=== PATIENT | male | born 1965 | race Caucasian/White ===

== ENCOUNTER 2017-03-23 17:18 | Emergency (ER) | payer BC ==
[~2017-03-23] VITALS: Ht 185.4 cm; Wt 128.6 kg
[2017-03-23 17:18] VITALS: TEMP 36.4; Ht 185.4 cm; Wt 128.6 kg
[2017-03-23] MEDS ORDERED: LIDOCAINE/EPINEPHRINE 1% 20 ML VIAL INFIL STA (17:33)
[2017-03-23] MEDS ORDERED: SODIUM CHLORIDE 0.9% 1000ML 1,000 ML IV STA (17:33)
[2017-03-23 17:57] VITALS: O2SAT 97
[2017-03-23] MEDS ORDERED: ESCI1TAB10 PO (17:58)
[2017-03-23] MEDS ORDERED: LSN/10125 PO (17:58)
[2017-03-23] MEDS ORDERED: BUPRTAB PO (17:58)
--- NOTE | 2017-03-23 18:08 | EMERGENCY ROOM VISIT NOTE ---
History Report prepared by Henrique: Kyara Gan Under the Supervision of: Dr. Mata Goss M.D. First contact with patient: 17:27 Chief Complaint: SYNCOPE Stated Complaint: SYNCOPE, FALL, HEAD LACERATION History of Present Illness The patient is a 51 year old male who presents to the Emergency Room with complaints of an episode of syncope just prior to arrival. The patient states he was drinking a cup of coffee when his friend told him a joke and he laughed. He reports that he started to choke on the coffee. The patient states that the next thing he remembers is waking up on the floor and his head was feeling warm from blood. The patient states that he has a massive headache and this has never happened before. The patient currently rates his pain as a 7/10 in severity. Source of History: patient Onset: prior to arrival Position: other (global) Symptom Intensity: 7/10 Quality: other (global) Timing: other (episode) Associated Symptoms: + headache Review of Systems See HPI for pertinent positives & negatives. A total of 10 systems reviewed and were otherwise negative. Past Medical & Surgical Medical Problems: (1) No Known Active Medical Problems Family History No pertinent family history Social History Smoking Status: Current Every Day Smoker Marital Status: Housing Status: lives with significant other Occupation Status: employed Current/Historical Medications Scheduled Bupropion Hcl (Wellbutrin Xl), 150 MG PO QAM Escitalopram Oxalate (Lexapro), 20 MG PO DAILY Hctz/Lisinopril (Lisinopril/Hctz 10/12.5 Mg), 1 TAB PO DAILY Allergies Coded Allergies: Aspirin (Unverified Allergy, Unknown, "CHILDHOOD ALLERGY", 03/23/17) Physical Exam Vital Signs Date Time Temp Pulse Resp B/P (MAP) Pulse Ox O2 Delivery O2 Flow Rate FiO2 03/23/17 20:10 72 22 136/84 98 03/23/17 19:15 66 22 141/94 95 Room Air 03/23/17 17:57 72 137/87 76 151/93 86 143/96 03/23/17 17:57 97 Room Air 03/23/17 17:35 69 03/23/17 17:18 36.4 75 20 137/87 97 Room Air Physical Exam GENERAL: Patient is a healthy-appearing well-nourished HEAD: Normocephalic, 2.6 cm laceration to back of head. EYES: Ocular movements intact pupils equal and react to light OROPHARYNX mucous membranes are moist no exudates present no erythema or edema present NECK: Supple no nuchal rigidity CHEST: Good equal expansion LUNGS: Clear and equal to auscultation CARDIAC: Normal S1 and S2 ABDOMEN: Soft nontender no guarding BACK: No CVA tenderness EXTREMITIES: No pain upon palpation normal muscle strength in all groups no clubbing cyanosis or edema NEURO: Patient is following commands and answering questions appropriately. Alert and oriented x3 Cranial Nerves 2-12 grossly intact Medical Decision & Procedures ER Provider Diagnostic Interpretation: Radiology results as stated below per my review and radiologist interpretation: CT SCAN OF THE BRAIN WITHOUT IV CONTRAST CLINICAL HISTORY: Headache. COMPARISON STUDY: No priors. TECHNIQUE: Unenhanced axial CT scan of the brain is performed from the vertex to the skull base. Automated dose control exposure was utilized. A dose lowering technique was utilized adhering to the principles of ALARA. CT DOSE: 687.98 mGy.cm FINDINGS: Brain parenchyma: Trace subdural blood is suspected along the midline falx, best seen on axial image #24. This measures up to 3 mm in thickness. The brain parenchyma is otherwise normal in appearance. There is no parenchymal hematoma, mass effect, or evidence of acute territorial ischemia by CT criteria. Mullen-white matter is preserved. Ventricles, sulci, cisterns: Normal in configuration. Intracranial vasculature: The visualized intracranial vasculature at the skull base is normal in appearance. Calvarium: No calvarial fractures seen. Soft tissues: There is a high left posterior parietal scalp contusion/laceration. Sinuses and mastoids: Mild mucosal thickening is seen in the left maxillary antrum. Trace mucosal thickening is also identified in the ethmoid sinuses. The mastoid air cells are well pneumatized. Orbits: The bony orbits are grossly intact. IMPRESSION: 1. Suspect trace subdural blood along the midline falx. Consider short-term CT follow-up for reassessment. 2. There is no parenchymal hematoma, mass effect, or evidence of acute territorial ischemia by CT criteria. 3. High left posterior parietal scalp injury. No calvarial fracture is seen. Electronically signed by: Vikas Denny M.D. Laboratory Results 03/23/17 17:49 Red Blood Count 5.40, Mean Corpuscular Volume 86.3, Mean Corpuscular Hemoglobin 28.9, Mean Corpuscular Hemoglobin Concent 33.5, Mean Platelet Volume 11.1, Neutrophils (%) (Auto) 61.2, Lymphocytes (%) (Auto) 27.1, Monocytes (%) (Auto) 8.4, Eosinophils (%) (Auto) 2.7, Basophils (%) (Auto) 0.4, Neutrophils # (Auto) 5.94, Lymphocytes # (Auto) 2.63, Monocytes # (Auto) 0.82, Eosinophils # (Auto) 0.26, Basophils # (Auto) 0.04 03/23/17 17:49 Test 03/23/17 17:30 03/23/17 17:49 Urine Color YELLOW Urine Appearance CLEAR (CLEAR) Urine pH 5.5 (4.5-7.5) Urine Specific Warren 1.016 (1.000-1.030) Urine Protein NEG (NEG) Urine Glucose (UA) NEG (NEG) Urine Ketones NEG (NEG) Urine Occult Blood NEG (NEG) Urine Nitrite NEG (NEG) Urine Bilirubin NEG (NEG) Urine Urobilinogen NEG (NEG) Urine Leukocyte Esterase NEG (NEG) White Blood Count 9.71 K/uL (4.8-10.8) Red Blood Count 5.40 M/uL (4.7-6.1) Hemoglobin 15.6 g/dL (14.0-18.0) Hematocrit 46.6 % (42-52) Mean Corpuscular Volume 86.3 fL (80-100) Mean Corpuscular Hemoglobin 28.9 pg (25-34) Mean Corpuscular Hemoglobin Concent 33.5 g/dl (32-36) Platelet Count 246 K/uL (130-400) Mean Platelet Volume 11.1 fL (7.4-10.4) Neutrophils (%) (Auto) 61.2 % Lymphocytes (%) (Auto) 27.1 % Monocytes (%) (Auto) 8.4 % Eosinophils (%) (Auto) 2.7 % Basophils (%) (Auto) 0.4 % Neutrophils # (Auto) 5.94 K/uL (1.4-6.5) Lymphocytes # (Auto) 2.63 K/uL (1.2-3.4) Monocytes # (Auto) 0.82 K/uL (0.11-0.59) Eosinophils # (Auto) 0.26 K/uL (0-0.5) Basophils # (Auto) 0.04 K/uL (0-0.2) RDW Standard Deviation 42.8 fL (36.4-46.3) RDW Coefficient of Variation 13.6 % (11.5-14.5) Immature Granulocyte % (Auto) 0.2 % Immature Granulocyte # (Auto) 0.02 K/uL (0.00-0.02) Anion Gap 9.0 mmol/L (3-11) Est Creatinine Clear Calc Drug Dose 93.4 ml/min Estimated GFR () 72.7 Estimated GFR (Non- 62.7 BUN/Creatinine Ratio 11.2 (10-20) Calcium Level 9.7 mg/dl (8.5-10.1) Total Bilirubin 0.4 mg/dl (0.2-1) Direct Bilirubin < 0.1 mg/dl (0-0.2) Aspartate Amino Transf (AST/SGOT) 22 U/L (15-37) Alanine Aminotransferase (ALT/SGPT) 44 U/L (12-78) Alkaline Phosphatase 77 U/L (45-117) Total Creatine Kinase 99 U/L (39-308) Creatine Kinase MB < 0.5 ng/ml (0.5-3.6) Creatine Kinase MB Ratio (0-3.0) Troponin I < 0.015 ng/ml (0-0.045) Total Protein 8.0 gm/dl (6.4-8.2) Albumin 3.8 gm/dl (3.4-5.0) Thyroid Stimulating Hormone (TSH) 0.473 uIu/ml (0.300-4.500) Labs reviewed by ED physician. Medications Administered Medications (Trade) Dose Ordered Sig/Ranjith Route Start Time Stop Time Status Last Admin Dose Admin Sodium Chloride 1,000 ml @ 999 mls/hr Q1H1M STAT IV 03/23/17 17:33 03/23/17 18:33 DC 03/23/17 18:28 999 MLS/HR Ondansetron HCl (Zofran Inj) 4 mg NOW STAT IV 03/23/17 18:22 03/23/17 18:23 DC 03/23/17 18:34 4 MG Acetaminophen (Tylenol Tab) 1,000 mg NOW STAT PO 03/23/17 18:22 03/23/17 18:23 DC 03/23/17 18:34 1,000 MG Fentanyl (Duragesic Patch) 50 mcg NOW STAT TD 03/23/17 18:23 03/23/17 18:24 DC 03/23/17 18:34 50 MCG Procedure Location: posterior to the head Total length: 2.6 cm Complexity: simple linear Verbal consent was obtained after the risks and benefits were explained, including but not limited to bleeding, scarring, infection, pain, and bone/joint /nerve damage. At this time, the risks of the procedure are less than the risks of NOT performing the procedure. A time out was taken and the correct patient and site identified. The target area was anesthetized with 3 ml of 1% lidocaine with epinephrine. Copious irrigation was performed using 500 cc normal saline. The wound was explored for foreign bodies and none found. Examination revealed no injury to deep structures such as tendons, bone, or significant blood vessels. Debridement was not performed. The wound edges were approximated using 7 roosevelt. Hemostasis and excellent approximation was achieved. Antibacterial ointment and a sterile dressing applied. Detailed wound care instructions and signs and symptoms of infection reviewed with the patient. No complications and the patient tolerated the procedure well. ECG Indication: syncope Rate (beats per minute): 69 Rhythm: normal sinus Findings: no acute ischemic change, no ectopy, other (normal EKG) ED Course 1726: Past medical records reviewed. The patient was evaluated in room B3B. A complete history and physical examination was performed. 173: Ordered Lidocaine/ Epinephrine 20 ml INFIL, NSS 1000 ml @ 999 mls/hr IV. 1821: Ordered Tylenol Tab 1000 mg PO, Zofran Inj 4 mg IV. 1822: Ordered Fentanyl 50 mcg TD. 1828: I discussed the patient's case with Dr. Maynard, he wants to talk to neurosurgery before further evaluating, but we do not have a neurosurgeon wireless sales consultant right now so the patient will be transferred. 1918: I reevaluated the patient and he is doing well. 1944: I talked to Dr. Whitehead from [place] and he agreed to transfer the patient so he could be further evaluated. Medical Decision Differential diagnosis: Etiologies such as vasovagal event, infection, hypoglycemia, electrolyte abnormalities, cardiac sources, intracerebral event, toxicologic, neurologic, as well as others were entertained. This is a 51-year-old male who presents emergency department after a syncopal episode where he hit his head and was knocked unconscious. Based on the story along the patient was sent for CAT scan of the head read this was concerning for subdural hematoma. His laceration was repaired as above. Due to the patient's multiple allergies he was given a fentanyl patch in the emergency department along with Tylenol. Repeat examination revealed much improvement patient's symptoms. Due to the patient's brain bleed I did discuss the case with the hospitalist service who refused to admit the patient and requested that the patient be transferred to a tertiary care center. Based on the fact that the patient is from [place] I do feel that this is reasonable. There was a delay in the transfer as it took some time for [facility] to return the phone call. The patient is adamantly refusing an ambulance and wishes to his to transfer him down. Medication Reconcilliation Current Medication List: was personally reviewed by me Blood Pressure Screening Patient's blood pressure: Elevated blood pressure Blood pressure disposition: Referred to PCP Consults Time Called: 1824 Consulting Physician: Dr. Maynard Returned Call: 1828 I discussed the patient's case with Dr. Maynard, he wants to talk to neurosurgery before further evaluating, but we do not have a neurosurgeon wireless sales consultant right now so the patient will be transferred. Additional Consults: Time Called: 1939 Consulted Physician: Dr. Whitehead- Kim Returned Call: 1944 Additional Comments: I talked to Dr. Whitehead from [place] and he agreed to transfer the patient so he could be further evaluated. Impression Primary Impression: Syncope Additional Impression: Subdural hematoma Scribe Attestation The scribe's documentation has been prepared under my direction and personally reviewed by me in its entirety. I confirm that the note above accurately reflects all work, treatment, procedures, and medical decision making performed by me. Departure Information Dispostion Transfer Acute Care Facility Patient Instructions [facility] Problem Qualifiers Primary Impression: Syncope Syncope type: unspecified Qualified Codes: R55 - Syncope and collapse
--- NOTE | 2017-03-23 18:15 | DIAGNOSTIC IMAGING REPORT ---
CT SCAN OF THE BRAIN WITHOUT IV CONTRAST CLINICAL HISTORY: Headache. COMPARISON STUDY: No priors. TECHNIQUE: Unenhanced axial CT scan of the brain is performed from the vertex to the skull base. Automated dose control exposure was utilized. A dose lowering technique was utilized adhering to the principles of ALARA. CT DOSE: 687.98 mGy.cm FINDINGS: Brain parenchyma: Trace subdural blood is suspected along the midline falx, best seen on axial image #24. This measures up to 3 mm in thickness. The brain parenchyma is otherwise normal in appearance. There is no parenchymal hematoma, mass effect, or evidence of acute territorial ischemia by CT criteria. Mullen-white matter is preserved. Ventricles, sulci, cisterns: Normal in configuration. Intracranial vasculature: The visualized intracranial vasculature at the skull base is normal in appearance. Calvarium: No calvarial fractures seen. Soft tissues: There is a high left posterior parietal scalp contusion/laceration. Sinuses and mastoids: Mild mucosal thickening is seen in the left maxillary antrum. Trace mucosal thickening is also identified in the ethmoid sinuses. The mastoid air cells are well pneumatized. Orbits: The bony orbits are grossly intact. IMPRESSION: 1. Suspect trace subdural blood along the midline falx. Consider short-term CT follow-up for reassessment. 2. There is no parenchymal hematoma, mass effect, or evidence of acute territorial ischemia by CT criteria. 3. High left posterior parietal scalp injury. No calvarial fracture is seen. Electronically signed by: Vikas Denny M.D. 03/23/2017 6:13 PM Dictated Date/Time: 03/23/2017 6:09 PM
[2017-03-23 18:16] LABS: BASO % 0.4 %; BASO ABS # 0.04 K/uL (0-0.2); COMPLETE YES; EOS % 2.7 %; HEMATOCRIT 46.6 % (42-52); IG% 0.2 %; LYMPH % 27.1 %; LYMPH ABS # 2.63 K/uL (1.2-3.4); MEAN CELL VOLUME 86.3 fL (80-100); MEAN CORPUSCULAR HEMOGLOBIN 28.9 pg (25-34); MEAN CORPUSCULAR HGB CONC 33.5 g/dl (32-36); MEAN PLATELET VOLUME 11.1 fL (7.4-10.4); MONO % 8.4 %; NEUT % 61.2 %; PLATELET COUNT 246 K/uL (130-400); WHITE BLOOD COUNT 9.71 K/uL (4.8-10.8)
[2017-03-23] MEDS ORDERED: ONDANSETRON INJ 2 MG/ML 2 ML VIAL IV STA (18:22)
[2017-03-23] MEDS ORDERED: ACETAMINOPHEN 500 MG TAB PO STA (18:22)
[2017-03-23] MEDS ORDERED: FENTANYL 50 MCG/HR TDSY TD STA (18:23)
[2017-03-23 18:29] LABS: URINE APPEARANCE CLEAR (CLEAR); URINE BILIRUBIN NEG (NEG); URINE COLOR YELLOW; URINE NITRITE NEG (NEG); URINE PH 5.5 (4.5-7.5); URINE SPECIFIC GRAVITY 1.016 (1.000-1.030); UROBILINOGEN NEG (NEG)
[2017-03-23 18:34] LABS: MANUAL MICROSCOPIC REQUIRED? NO; REVIEW REQ? NO
[2017-03-23 18:36] LABS: ALT/SGPT 44 U/L (12-78); BLOOD UREA NITROGEN 15 mg/dl (7-18); BUN/CREATININE RATIO 11.2 (10-20); CALCIUM 9.7 mg/dl (8.5-10.1); CARBON DIOXIDE 25 mmol/L (21-32); CHLORIDE 105 mmol/L (98-107); GLUCOSE 90 mg/dl (70-99); POTASSIUM 3.5 mmol/L (3.5-5.1); SODIUM 139 mmol/L (136-145)
[2017-03-23 18:46] LABS: ALKALINE PHOSPHATASE 77 U/L (45-117); AST/SGOT 22 U/L (15-37); THYROID STIMULATING HORMONE 0.473 uIu/ml (0.300-4.500)
[2017-03-23 20:10] VITALS: BP 136/84; PULSE 72; O2SAT 98
== END 2017-03-23 20:10 | disposition short-term general hospital (02) ==
LOC: C.EDB 17:25
DX: R55 Syncope and collapse (principal); S06.5X9A Traumatic subdural hemorrhage with loss of consciousness of unspecified duration, initial encounter; S01.81XA Laceration without foreign body of other part of head, initial encounter; W19.XXXA Unspecified fall, initial encounter; F17.200 Nicotine dependence, unspecified, uncomplicated